=== PATIENT | male | born 1990 | race African-American/Black ===

== ENCOUNTER 2017-08-02 10:46 | Emergency (ER) | payer OTHER | END 2017-08-02 13:03 | disposition home or self-care (01) | LOC: M ED 10:46 | DX: Z04.1 Encounter for examination and observation following transport accident (principal); V48.5XXA Car driver injured in noncollision transport accident in traffic accident, initial encounter; Y92.410 Unspecified street and highway as the place of occurrence of the external cause; Z91.018 Allergy to other foods | CPT/HCPCS: 99283 ==

== ENCOUNTER 2019-09-21 19:32 | Inpatient (IN) | payer OTHER ==
[~2019-09-21] VITALS: Ht 172.7 cm; Wt 86.6 kg
[2019-09-21 20:20] LABS: HEMATOCRIT 42.9 % (42.0-52.0); HEMOGLOBIN 14.2 g/dl (13.5-17.5); MEAN CORPUSCULAR HGB CONC 33.1 g/dl (32.0-36.5); MEAN CORPUSCULAR VOLUME 84.4 fl (80.0-96.0); PLATELET COUNT, AUTOMATED 202 10^3/uL (150-450); RED BLOOD COUNT 5.08 10^6/uL (4.30-6.10); WHITE BLOOD COUNT 6.9 10^3/uL (4.0-10.0)
[2019-09-21 20:41] LABS: AMPHETAMINES LEVEL URINE NEGATIVE (NEGATIVE); BARBITURATES URINE NEGATIVE (NEGATIVE); BENZODIAZEPINES URINE NEGATIVE (NEGATIVE); CANNABINOIDS URINE POSITIVE (NEGATIVE); COCAINE METABOLITE URINE NEGATIVE (NEGATIVE); METHADONE URINE NEGATIVE (NEGATIVE); OPIATES URINE NEGATIVE (NEGATIVE); PHENCYCLIDINE URINE NEGATIVE (NEGATIVE)
[2019-09-21 20:49] LABS: ALBUMIN 4.1 GM/DL (3.2-5.2); ALT/SGPT 70 U/L (12-78); BILIRUBIN,DIRECT 0.2 MG/DL (0.0-0.2); BILIRUBIN,TOTAL 0.5 MG/DL (0.2-1.0); BLOOD UREA NITROGEN 24 MG/DL (7-18); CALCIUM LEVEL 9.1 MG/DL (8.5-10.1); CARBON DIOXIDE LEVEL 24 MEQ/L (21-32); CHLORIDE LEVEL 109 MEQ/L (98-107); ETHYL ALCOHOL (ETHANOL) < 0.003 % (0.000-0.010); GLOMERULAR FILTRATION RATE > 60.0 (>60); GLUCOSE, FASTING 86 MG/DL (70-100); SALICYLATE LEVEL 1.7 MG/DL (5.0-30.0); SODIUM LEVEL 141 MEQ/L (136-145); TOTAL PROTEIN 8.1 GM/DL (6.4-8.2)
[2019-09-21 20:50] LABS: ACETAMINOPHEN LEVEL < 2.0 UG/ML (10.0-30.0)
[2019-09-21] MEDS ORDERED: traZODone 50 MG TAB PO PRN (21:45)
[2019-09-21] MEDS ORDERED: OLANZapine ORAL DISINTEGRATING TAB 5MG PO PRN (21:45)
[2019-09-21] MEDS ORDERED: MOM 30ML SUSPENSION UDC PO PRN (21:45)
[2019-09-21] MEDS ORDERED: ACETAMINOPHEN TAB 650MG DOSE (2X325MG) PO PRN (21:45)
[2019-09-21] MEDS ORDERED: MAALOX 30 ML SUSP *UDC PO PRN (21:45)
[2019-09-22 00:07] VITALS: BP 141/80
[2019-09-22 00:30] VITALS: BP 141/80
[2019-09-22] MEDS ORDERED: LORazepam 2 MG TAB PO PRN (06:00)
[2019-09-22 07:15] VITALS: BP 134/62
[2019-09-22] MEDS: MULTIVITAMINS/MINERALS THERAP 1 TAB PO SCH (08:31)
[2019-09-22] MEDS: FOLIC ACID 1 MG TAB PO SCH (08:31)
[2019-09-22] MEDS: THIAMINE 100 MG TAB PO SCH ×2 (08:31→21:00)
--- NOTE | 2019-09-22 13:53 | HPEPDOC ---
General Date of Admission Sep 21, 2019 at 21:38 Date of Service: Sep 22, 2019 Chief Complaint The patient is a 29-year-old male Who presents to the hospital after noting homicidal ideation History of Present Illness Patient is a 29-year-old male with no significant past medical history was presented to Hospital after reporting homicidal ideation. Patient was admitted to the inpatient mental health unit under the care of psychiatry. Hospitalist service was contacted for medical screening evaluation. Currently patient denies any headache, nausea, vomiting, chest pain, shortness breath, palpitations, abdominal pain, diarrhea or urinary discomfort. Has not experienced any recent fevers or chills. Patient reports that his appetite is fairly normal has reported mild increase in weight. 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 Review of Systems Other systems 10 point review of systems complete, all negative otherwise stated in HPI Vital Signs - Vitals: BP 134/62, HR 89, RR 16, Sat 100%RA, Temp 98.4F - General: Sitting up in chair, Speaking in full sentences, AAOx3 - HEENT: NC, AT, PERRLA - CVS: RRR, +S1S2 - Lungs: Fair air entry bilaterally, No appreciable wheezing / rales / rhonchi - Abdomen: Soft, Non-distended, Non-tender - Extremities: No lower extremity edema, No calf tenderness - Neuro: No focal motor or sensory deficit - Skin: No visible rashes Laboratory Data Labs 24H Laboratory Tests 2 09/21/19 20:09: Nucleated Red Blood Cells % (auto) 0.0, Anion Gap 8, Glomerular Filtration Rate > 60.0, Calcium Level 9.1, Total Bilirubin 0.5, Direct Bilirubin 0.2, Aspartate Amino Transf (AST/SGOT) 250H, Alanine Aminotransferase (ALT/SGPT) 70, Alkaline Phosphatase 94, Total Protein 8.1, Albumin 4.1, Albumin/Globulin Ratio 1.0, Thyroid Stimulating Hormone (TSH) 4.330H, Salicylates Level 1.7L, Urine Opiates Screen NEGATIVE, Urine Methadone Screen NEGATIVE, Acetaminophen Level < 2.0L, Urine Barbiturates Screen NEGATIVE, Urine Phencyclidine Screen NEGATIVE, Urine Amphetamines Screen NEGATIVE, Urine Benzodiazepines Screen NEGATIVE, Urine Cocaine Metabolite Screen NEGATIVE, Urine Cannabinoids Screen POSITIVEH, Ethyl Alcohol Level < 0.003 CBC/BMP Laboratory Tests 09/21/19 20:09 Plan / VTE VTE Prophylaxis Ordered?: Yes Plan Plan Homicidal ideation / impulsivity - Patient was admitted to inpatient mental health unit under the care of psychiatry - Currently being managed by psychiatry Alcohol abuse - Has already been started on multivitamins, thiamine and folate Elevated Creatinine - Unclear baseline - Will check UA / urine electrolytes / repeat BMP in 24 hours - Advised increased oral hydration Transaminitis - AST specifically elevated; possibly 2/2 ETOH - Will check hepatitis profile DVT prophylaxis - Will continue with early ambulation Thank you for this consultation; will continue to follow for repeat lab work QUINTON AVILA MD Sep 22, 2019 13:52
[2019-09-22 15:47] LABS: HEPATITIS A ANTIBODY IGM NEGATIVE (NEGATIVE); HEPATITIS B CORE ANTIBODY IGM NEGATIVE (NEGATIVE); HEPATITIS B SURFACE ANTIGEN NEGATIVE (NEGATIVE); HEPATITIS C VIRUS ABY INDEX 0.1 INDEX (<0.8)
[2019-09-22 16:39] VITALS: BP 136/73
[2019-09-22] MEDS: OLANZapine ORAL DISINTEGRATING TAB 5MG PO SCH (21:00)
[2019-09-22 21:21] LABS: APPEARANCE, URINE CLEAR (CLEAR); BACTERIA, URINE AUTO NEGATIVE (NEGATIVE); BILIRUBIN, URINE AUTO NEGATIVE (NEGATIVE); BLOOD, URINE BLOOD NEGATIVE (NEGATIVE); COLOR, URINE YELLOW (YELLOW); GLUCOSE, URINE (UA) AUTO NEGATIVE (NEGATIVE); KETONE, URINE AUTO NEGATIVE (NEGATIVE); LEUKOCYTE ESTERASE, URINE AUTO NEGATIVE (NEGATIVE); NITRITE, URINE AUTO NEGATIVE (NEGATIVE); PROTEIN, URINE AUTO NEGATIVE (NEGATIVE); RBC, URINE AUTO 1 /HPF (0-3); SPECIFIC GRAVITY URINE AUTO 1.026 (1.002-1.035); SQUAMOUS EPITHELIAL CELL UR AU 0 /HPF (0-6); UROBILINOGEN, URINE AUTO 0.2 mg/dL (0.0-2.0); WBC, URINE AUTO 0 /HPF (0-3)
[2019-09-22 21:23] LABS: OSMOLALITY URINE 1067 MOSM/KG (500-800)
[2019-09-22 21:54] LABS: SODIUM,RANDOM URINE 206 MEQ/L; UREA NITROGEN RANDOM URINE 1333 MG/DL
[2019-09-22 23:56] VITALS: BP 136/73
[2019-09-23 06:12] VITALS: BP 142/92
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
[2019-09-23] MEDS: MULTIVITAMINS/MINERALS THERAP 1 TAB PO SCH (09:14)
[2019-09-23] MEDS: FOLIC ACID 1 MG TAB PO SCH (09:14)
[2019-09-23] MEDS: THIAMINE 100 MG TAB PO SCH ×2 (09:14→21:00)
[2019-09-23 11:06] VITALS: BP 131/73
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
[2019-09-23 16:30] VITALS: BP 120/72
--- NOTE | 2019-09-23 16:55 | IPNPDOC ---
Text Note Date of Service The patient was seen on 09/23/19. NOTE Documentation reviewed. Hepatitis panel is negative for a B or C. Metabolic panel scheduled for today was canceled by [facility]. We will sign off for now. Please do not hesitate to reconsult us if acute medical concerns arise. VS,Fishbone, I+O VS, Fishbone, I+O Vital Signs Date Time Temp Pulse Resp B/P (MAP) Pulse Ox O2 Delivery O2 Flow Rate FiO2 09/23/19 16:30 98.1 71 18 120/72 (88) 09/22/19 07:15 100 Room Air SHRUTHI HOFFMAN MD Sep 23, 2019 16:55
[2019-09-23 20:00] VITALS: BP 130/74
[2019-09-23] MEDS: OLANZapine ORAL DISINTEGRATING TAB 5MG PO SCH (21:00)
[2019-09-24 06:28] VITALS: BP 146/72
[2019-09-24 08:10] VITALS: BP 146/72
[2019-09-24] MEDS: FOLIC ACID 1 MG TAB PO SCH (08:48)
[2019-09-24] MEDS: THIAMINE 100 MG TAB PO SCH ×2 (08:48→21:00)
[2019-09-24] MEDS: MULTIVITAMINS/MINERALS THERAP 1 TAB PO SCH (08:48)
--- NOTE | 2019-09-24 12:41 | MHIPNPDOC ---
[facility] Progress Note Progress Note DATE OF SERVICE: 09/24/19 HPI: Hiren presents today for a follow up. He is ready for discharge tomorrow and denies any SI or HI. Objective Appearance: Well groomed. Well nourished. Behavior: Pleasant. Cooperative with good eye contact. Engaged. Affect: Appropriate to context. Full range. Mood: Euthymic. Appropriately reactive. Generally good. Speech: Normal volume. Normal rate. Motor: No gross motor abnormalities. Cognition: Alert, Attentive, and Oriented to person, place, time. Memory: No gross abnormalities of short or extermination inspector memory noted during inte rview. No formal testing. Thought Form: Linear and goal directed. Thought Content: No thoughts of self harm. No evidence of suicidal ideation. No evidence of delusions. No evidence of aggressive or homicidal ideation. Perception: No perceptual abnormalities noted. Judgement: intact as evidenced by decision making in the recent past. Insight: good insight into symptoms and treatment options. Assessment F43.20 Adjustment disorder, unspecified Plan Continue to monitor. 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 Vital Signs Vital Signs Date Time Temp Pulse Resp B/P (MAP) Pulse Ox O2 Delivery O2 Flow Rate FiO2 09/24/19 06:28 98.6 70 18 146/72 (96) 09/22/19 07:15 100 Room Air Current Medications Current Medications Medications (Trade) Dose Ordered Sig/Elian Route PRN Reason Start Time Stop Time Status Last Admin Dose Admin Acetaminophen (Tylenol Tab) 650 mg Q6HP PRN PO HEADACHE or DISCOMFORT 09/21/19 21:45 Al Hydrox/Mg Hydrox/Simethicone (Mylanta) 30 ml Q4HP PRN PO HEARTBURN/INDIGESTION 09/21/19 21:45 Folic Acid (Folic Acid) 1 mg DAILY PO 09/22/19 09:00 09/24/19 08:48 Home Med (Med Rec Complete!) ASDIRECTED XX 09/21/19 21:15 09/21/19 21:19 DC Lorazepam (Ativan) 2 mg ASDIRECTED PRN PO SEE PROTOCOL 09/22/19 06:00 Magnesium Hydroxide (Milk Of Magnesia) 30 ml DAILYPRN PRN PO CONSTIPATION 09/21/19 21:45 Multivitamins (Theragram-M) 1 tab DAILY PO 09/22/19 09:00 09/24/19 08:48 Olanzapine (ZyPREXA ZYDIS) 5 mg Q6HP PRN PO AGITATION 09/21/19 21:45 Olanzapine (ZyPREXA ZYDIS) 10 mg QHS PO 09/22/19 21:00 Thiamine HCl (Thiamine HCl) 100 mg BID PO 09/22/19 09:00 09/25/19 08:59 09/24/19 08:48 Trazodone HCl (Desyrel) 50 mg QHSP PRN PO INSOMNIA 09/21/19 21:45 Allergies Coded Allergies: tree nut (Verified Allergy, Severe, ANAPHYLAXIS, 09/21/19) AVINASH GASTELUM DO Sep 24, 2019 12:41
[2019-09-24 16:32] VITALS: BP 140/69
[2019-09-24] MEDS: OLANZapine ORAL DISINTEGRATING TAB 5MG PO SCH (21:00)
[2019-09-25 06:43] VITALS: BP 133/71
[2019-09-25] MEDS: MULTIVITAMINS/MINERALS THERAP 1 TAB PO SCH (08:37)
[2019-09-25] MEDS: FOLIC ACID 1 MG TAB PO SCH (08:37)
--- NOTE | 2019-09-25 09:16 | MHDSPDOC ---
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 CONSULTANTS INVOLVED:[ None (basic hospitalist screening)] TREATMENT AND PROGRESS ON THE UNIT : Medication changes: no medications were started after discussion with patient, reports that his statements were made in anger Behavior on unit: observed, at times somewhat demeaning towards others consistent with his cluster B personality traits, but had no aggression or other issues Treatment attendance: attended at times but was very focused on reading Notable issues on presentation: some concern about his chattering out of the for bad behavior and his curiosity about med board State on discharge: [stable] DISCHARGE ASSESSMENT: The patient a 29 year old man, with likely adjustment problems. On top of cluster B personality traits, presented to [facility], where they observe for 48 hours to ensure that there is no consistent homicidal threats or imminent threat towards others. Legal status considerations: The patient at the time of discharge did not meet criteria for involuntary admission/extension due to having a [normal] mental status exam, [fair] insight into the situation, They are engaged in the discharge process, as well as being friendly and amenable in behavioral control and havent been engaging in any observed concerning behavior or ideation recently. They decline voluntary extension/admission at this time and must be discharged in good abdullahi, as Im unable to make a case for holding the patient against their will. They may have historical risk factors of admissions and other interactions with psychiatry however, those are not modifiable from a clinical perspective. The patient will need to be discharged in good abdullahi. MENTAL STATUS EXAMINATION ON DISCHARGE: [General: Well dressed with good hygiene Speech: Spontaneous and fluid Thought processes: Linear and logical Thought content: Future orientated Abstract reasoning, and computation: Intact Description of associations: Intact Description of abnormal or psychotic thoughts:Denies any suicidal or homicidal ideation. Denies any auditory or visual hallucinations. Does not appear to be responding to internal stimuli. Does not appear to be endorsing any bizarre or paranoid ideation. Judgment: fair Insight: fair Orientation: Alert and orientated 3 Recent and remote memory: Intact Attention span and concentration: Intact Fund of knowledge: Adequate Mood: "okay" Affect: Euthymic with a full range] PLAN/FOLLOWUP ARRANGEMENTS: Follow up appointments made (PCP and MH in 5 days of D/C date) and safety plan completed. Safety Planning aspects completed prior to discharge [DOD: Weapons Profile 30 days] [RN reviewed crisis hotline information and other aspects to empower patient to access care in interim before next appointment.] The amount of time spent in the coordination of care for this patient was approximately 30 minutes. Vital Signs/I&Os Vital Signs Date Time Temp Pulse Resp B/P (MAP) Pulse Ox O2 Delivery O2 Flow Rate FiO2 09/25/19 06:43 97.9 71 12 133/71 (91) Room Air 09/22/19 07:15 100 Medications No Active Prescriptions or Reported Meds Allergies Coded Allergies: tree nut (Verified Allergy, Severe, ANAPHYLAXIS, 09/21/19) AVINASH GASTELUM DO Sep 25, 2019 09:16
== END 2019-09-25 12:03 | disposition home or self-care (01) | DRG 882 ==
LOC: M ED 19:32 → M ED INP 21:38 → M PSY 23:57
PROVIDERS: ADMIT Psychiatry & Neurology Psychiatry; ATTEND Psychiatry & Neurology Addiction Medicine
DX: F43.20 Adjustment disorder, unspecified (principal); R45.851 Suicidal ideations; F60.89 Other specific personality disorders; F10.10 Alcohol abuse, uncomplicated